=== PATIENT | male | born 1970 | race Caucasian/White ===

== ENCOUNTER 2021-07-03 23:20 | Inpatient (IN) | payer MEDICARE ==
[2021-07-04 00:25] LABS: Anion Gap 17 mmol/L (10-20); BUN (Urea Nitrogen) 41 mg/dL (8.4-25.7); Calc. Creatinine Clearance 0 mL/min (70-130); Calcium 11.9 mg/dL (7.8-10.44); Carbon Dioxide 25 mmol/L (22-29); Chloride 97 mmol/L (98-107); Glucose 121 mg/dL (70-105); Sodium 134 mmol/L (136-145)
[2021-07-04 01:19] LABS: CKMB 13.7 ng/mL (0-6.6)
[2021-07-04] MEDS ORDERED: Calcium Carbonate 500 MG ChewTAB PO PRN (01:21)
[2021-07-04] MEDS ORDERED: Acetaminophen 325 MG TAB PO PRN (01:21)
[2021-07-04] MEDS ORDERED: Guaifenesin DM 100-10/5 ML UDCUP PO PRN (01:21)
[2021-07-04] MEDS ORDERED: HYDROcodone/Acetaminophen 5/325 mg Tablet PO PRN (01:21)
[2021-07-04] MEDS ORDERED: Ondansetron PF 4 MG/2 ML Vial IVP PRN (01:21)
[2021-07-04] MEDS ORDERED: UMECLIDIN PO PRN (01:24)
[2021-07-04] MEDS ORDERED: VILANTER PO PRN (01:24)
[2021-07-04] MEDS ORDERED: FLUTICASONE PO PRN (01:24)
[2021-07-04] MEDS ORDERED: [UNRECOGNIZED DRUG - OTHER] PO PRN (01:24)
[2021-07-04] MEDS ORDERED: Sodium Chloride 0.9% 1,000 ML IV SCH (01:30)
[2021-07-04 04:07] VITALS: BMI 41.6
[2021-07-04] MEDS: HYDROcodone/Acetaminophen 5/325 mg Tablet PO PRN ×3 (05:20→18:18)
[2021-07-04 06:46] LABS: Bilirubin Neg (Negative); Blood, Urine Negative (Negative); Clarity Clear (Clear); Glucose, Urine (Dipstick) >=1000 mg/dL (Negative); Ketone, Urine Negative (Negative); Leukocyte Negative (Negative); Nitrite Negative (Negative); Protein, Urine (Dipstick) Negative (Neg-Trace); Specific Gravity, Urine 1.015 (1.002-1.036); Urobilinogen Normal mg/dL (Less than 2)
[2021-07-04 06:59] LABS: Bacteria/HPF None Seen HPF (None Seen); RBC/HPF 0-3 HPF (0-3); Squamous Epithelial None Seen HPF (0-3); WBC/HPF None Seen HPF (0-3)
[2021-07-04] MEDS: Rivaroxaban 10 MG TAB PO SCH (10:16)
[2021-07-04] MEDS: Cholecalciferol 1,000 UNITS (25 MCG) TAB PO SCH (10:16)
[2021-07-04] MEDS: Zinc Gluconate 50 MG TAB PO SCH (10:16)
[2021-07-04] MEDS: Ascorbic Acid 500 mg Chewable Tablet PO SCH (10:16)
[2021-07-04] MEDS: Nicotine 21 MG PATCH TD SCH (10:16)
[2021-07-04] MEDS: Flecainide 50 MG TAB PO SCH ×2 (10:16→21:11)
[2021-07-04 20:16] LABS: #Monocytes 0.8 10x3/uL (0.0-1.1); #Neutrophils 9.2 10x3/uL (1.5-8.4); %Basophils 0.2 % (0.0-2.0); %Eosinophils 0.1 % (0.0-6.0); %Lymphocytes 8.2 % (18.0-47.0); %Monocytes 6.9 % (0.0-10.0); %Neutrophils 83.7 % (40.0-75.0); Mean Corpuscular Hemoglobin 31.1 pg (27.0-33.0); Mean Corpuscular Volume 91.6 fl (81.2-95.1); Mean Platelet Volume 11.9 fl (7.4-10.4); Platelet Count 96 10x3/uL (150-450); RBC Distribution Width 13.8 % (11.5-14.5); Red Blood Cell (RBC) Count 5.14 10x6/uL (4.32-5.72)
[2021-07-04 20:27] LABS: ALT (SGPT) 57 U/L (8-55); AST (SGOT) 72 U/L (5-34); Albumin 3.7 g/dL (3.5-5.0); Alkaline Phosphatase 41 U/L (40-110); Anion Gap 17 mmol/L (10-20); BUN (Urea Nitrogen) 30 mg/dL (8.4-25.7); Bilirubin, Total 0.8 mg/dL (0.2-1.2); CK (CPK) 291 U/L (30-200); Calc. Creatinine Clearance 118 mL/min (70-130); Calcium 10.5 mg/dL (7.8-10.44); Carbon Dioxide 20 mmol/L (22-29); Chloride 103 mmol/L (98-107); Globulin 3.9 g/dL (2.4-3.5); Glucose 188 mg/dL (70-105); Magnesium 1.7 mg/dL (1.6-2.6); Potassium 4.8 mmol/L (3.5-5.1); Protein, Total 7.6 g/dL (6.0-8.3); Sodium 135 mmol/L (136-145)
[2021-07-04] MEDS: Metoprolol Tartrate 50 MG TAB PO SCH (21:11)
[2021-07-04] MEDS ORDERED: Magnesium Oxide 400 MG TAB PO SCH (21:15)
[2021-07-05] MEDS: HYDROcodone/Acetaminophen 5/325 mg Tablet PO PRN ×3 (01:03→13:41)
[2021-07-05] MEDS ORDERED: Magnesium Oxide 400 MG TAB PO SCH (09:00)
[2021-07-05] MEDS ORDERED: Lisinopril 10 MG TAB PO SCH (09:00)
[2021-07-05] MEDS: Metoprolol Tartrate 50 MG TAB PO SCH (09:20)
[2021-07-05] MEDS: Rivaroxaban 10 MG TAB PO SCH (09:20)
[2021-07-05] MEDS: Flecainide 50 MG TAB PO SCH (09:20)
[2021-07-05] MEDS: Ascorbic Acid 500 mg Chewable Tablet PO SCH (09:20)
[2021-07-05] MEDS: Cholecalciferol 1,000 UNITS (25 MCG) TAB PO SCH (09:20)
[2021-07-05] MEDS: Nicotine 21 MG PATCH TD SCH (09:20)
[2021-07-05] MEDS: Zinc Gluconate 50 MG TAB PO SCH (09:20)
[2021-07-05 14:07] VITALS: BP 115/67; TEMP 97.8
== END 2021-07-05 16:20 | disposition home or self-care (01) | DRG 178 ==
LOC: CSHERS 23:20 → CSHTELE 07-04 01:20
PROVIDERS: ADMIT Student in an Organized Health Care Education/Training Program; ATTEND Internal Medicine
DX: U07.1 COVID-19 (principal); N17.9 Acute kidney failure, unspecified; Z68.41 Body mass index [BMI] 40.0-44.9, adult; I42.9 Cardiomyopathy, unspecified; B18.2 Chronic viral hepatitis C; I48.0 Paroxysmal atrial fibrillation; E66.01 Morbid (severe) obesity due to excess calories; Z86.718 Personal history of other venous thrombosis and embolism; Z86.711 Personal history of pulmonary embolism; D69.6 Thrombocytopenia, unspecified; E83.52 Hypercalcemia; R73.9 Hyperglycemia, unspecified; I10 Essential (primary) hypertension; E86.0 Dehydration
CPT/HCPCS: 80053; 81001; 82550; 82553; 83735; 84484; 85025; 93005; 93010; 94760; J7050